=== PATIENT | female | born 1990 | race Caucasian/White ===

== ENCOUNTER 2018-07-21 16:29 | Emergency (ER) | payer OTHER ==
[~2018-07-21] VITALS: Ht 170.2 cm; Wt 81.6 kg
[2018-07-21 16:35] VITALS: Ht 170.2 cm; Wt 81.6 kg
[2018-07-21 20:36] VITALS: BP 103/48
== END 2018-07-21 20:36 | disposition other institution (70) ==
LOC: ED 16:29
DX: T78.2XXA Anaphylactic shock, unspecified, initial encounter (principal); T78.1XXA Other adverse food reactions, not elsewhere classified, initial encounter; Z88.6 Allergy status to analgesic agent; Z91.010 Allergy to peanuts; Z85.3 Personal history of malignant neoplasm of breast; Z88.8 Allergy status to other drugs, medicaments and biological substances; X58.XXXA Exposure to other specified factors, initial encounter
CPT/HCPCS: J0171; J1200; J2060; J2405; J2930; J3490; J7030